=== PATIENT | male | born 1960 | race Two or more races ===

== ENCOUNTER 2022-12-30 08:15 | Emergency (ER) | payer OTHER ==
[2022-12-30 08:36] VITALS: BMI 32.3
[2022-12-30] MEDS ORDERED: SODIUM CHLORIDE 0.9% 500 ML INFUS.BAG IV ONE (08:41)
[2022-12-30] MEDS ORDERED: METOCLOPRAMIDE HCL INJECTION 10 MG/2 ML VIAL IVPUSH ONE (08:41)
[2022-12-30] MEDS ORDERED: METOCLOPRAMIDE HCL INJECTION 10 MG/2 ML VIAL ONE (09:13)
[2022-12-30 09:33] LABS: BASO % 0.9 % (0-2.0); EOS % 0.2 % (0-4.5); HEMATOCRIT 50.7 % (35.4-49); HEMOGLOBIN 17.4 GM/dL (11.7-16.9); LYMPH % 18.1 % (8-40); MCH 31.1 pg (25.7-33.7); MCHC 34.3 g/dl (32.0-35.9); MEAN CELL VOLUME 90.7 fl (80-96); MEAN PLT VOLUME 10.9 fl (7.5-11.1); MONO % 4.2 % (3.8-10.2); NEUT % 76.6 % (42.8-82.8); PLATELET COUNT 237 10^3/uL (134-434); RBC 5.59 M/mm3 (4.00-5.60); RDW 13.6 % (11.9-15.9); WHITE BLOOD COUNT 12.6 K/mm3 (4.0-10.0)
[2022-12-30 09:43] LABS: INR 1.11 (0.83-1.09); PROTHROMBIN TIME (PATIENT) 12.9 SEC (9.7-13.0)
[2022-12-30 09:59] LABS: POTASSIUM 4.3 mmol/L (3.5-5.1)
[2022-12-30 10:01] LABS: CALCIUM 9.6 mg/dL (8.5-10.1)
[2022-12-30 10:02] LABS: BLOOD UREA NITROGEN 14.4 mg/dL (7-18); MAGNESIUM 2.2 mg/dL (1.8-2.4)
[2022-12-30 10:05] LABS: CREATININE 0.8 mg/dL (0.55-1.3)
[2022-12-30 10:06] LABS: BILIRUBIN,TOTAL 0.9 mg/dL (0.2-1); TOT PROT 8.2 g/dl (6.4-8.2)
[2022-12-30] MEDS ORDERED: KETOROLAC TROMETHAMINE 15 MG/ML VIAL IVPUSH ONE (10:13)
[2022-12-30] MEDS ORDERED: KETOROLAC TROMETHAMINE 15 MG/ML VIAL ONE (10:20)
[2022-12-30 11:05] LABS: INR 1.17 (0.83-1.09); PROTHROMBIN TIME (PATIENT) 13.5 SEC (9.7-13.0)
[2022-12-30 11:07] LABS: ACTIVATED PTT 35.4 SECONDS (25.2-36.5)
[2022-12-30 11:11] LABS: ACTIVATED PTT 46.1 SECONDS (25.2-36.5)
[2022-12-30 11:51] VITALS: BP 144/75; RESP 16; TEMP 97.6
[2023-01-03 21:34] VITALS: PULSE 73
== END 2022-12-30 11:53 | disposition home or self-care (01) ==
LOC: JER 08:15
PROC: 3E033NZ Introduction of Analgesics, Hypnotics, Sedatives into Peripheral Vein, Percutaneous Approach (ICD-10-PCS; principal; 2022-12-30)
PROC: 3E033GC Introduction of Other Therapeutic Substance into Peripheral Vein, Percutaneous Approach (ICD-10-PCS; 2022-12-30)
DX: R51.9 Headache, unspecified (principal); R42 Dizziness and giddiness; R25.1 Tremor, unspecified; G44.40 Drug-induced headache, not elsewhere classified, not intractable
CPT/HCPCS: 36415; 70450-TC; 71045-TC-FY; 80053; 82140; 82550; 82962; 83690; 83735; 84443; 84484; 85025; 85610; 85730; 86850; 86900; 86901; 93005; 93010; 99285-25

== ENCOUNTER 2024-06-26 11:35 | Emergency (ER) | payer OTHER ==
[2024-06-26 12:22] VITALS: BP 153/99; PULSE 77; RESP 18; TEMP 98.5; BMI 32.3
[2024-06-26] MEDS ORDERED: ACETAMINOPHEN INJECTION 100 ML ONE (13:35)
[2024-06-26] MEDS: SODIUM CHLORIDE 0.9% 500 ML INFUS.BAG IV ONE (14:06)
[2024-06-26] MEDS: ACETAMINOPHEN 1000 MG/100 ML BAG IVPB ONE (14:07)
[2024-06-26 14:30] LABS: BASO % 0.6 % (0-2.0); HEMATOCRIT 40.6 % (35.4-49); HEMOGLOBIN 13.8 GM/dL (11.7-16.9); LYMPH % 37.3 % (8-40); MCH 30.2 pg (25.7-33.7); MEAN CELL VOLUME 88.7 fl (80-96); MEAN PLT VOLUME 10.6 fl (7.5-11.1); MONO % 8.5 % (3.8-10.2); NEUT % 52.6 % (42.8-82.8); PH,URINE 5.5 (5.0-8.0); PLATELET COUNT 176 10^3/uL (134-434); RBC 4.57 M/mm3 (4.00-5.60); RDW 13.9 % (11.9-15.9); URINE APPEARANCE CLEAR; URINE BILIRUBIN NEGATIVE (NEGATIVE); URINE COLOR YELLOW; URINE GLUCOSE (UA) 3+ (NEGATIVE); URINE KETONE NEGATIVE (NEGATIVE); URINE LEUK ESTERASE NEGATIVE (NEGATIVE); URINE NITRITE NEGATIVE (NEGATIVE); URINE PROTEIN NEGATIVE (NEGATIVE); URINE UROBILINOGEN 0.2 mg/dL (0.2-1.0); WHITE BLOOD COUNT 8.7 K/mm3 (4.0-10.0)
[2024-06-26 14:35] LABS: INR 0.98 (0.83-1.09); PROTHROMBIN TIME (PATIENT) 11.3 SEC (9.7-13.0)
[2024-06-26 14:38] LABS: ACTIVATED PTT 30.2 SECONDS (25.2-36.5)
[2024-06-26 15:17] LABS: ALBUMIN 3.2 g/dl (3.4-5.0); BILIRUBIN,TOTAL 0.4 mg/dL (0.2-1); CALCIUM 8.6 mg/dL (8.5-10.1); CREATININE 0.7 mg/dL (0.55-1.3); POTASSIUM 4.1 mmol/L (3.5-5.1); TOT PROT 6.3 g/dl (6.4-8.2)
[2024-06-26 15:24] LABS: HIV INTERPRETATION NEGATIVE (NEGATIVE)
[2024-06-26 16:34] LABS: BLOOD UREA NITROGEN 15.6 mg/dL (7-18)
== END 2024-06-26 17:28 | disposition home or self-care (01) ==
LOC: JER 11:35
PROC: 3E033NZ Introduction of Analgesics, Hypnotics, Sedatives into Peripheral Vein, Percutaneous Approach (ICD-10-PCS; principal; 2024-06-26)
DX: M54.42 Lumbago with sciatica, left side (principal)
CPT/HCPCS: 36415; 71275-TC; 74174-TC; 80053; 81003; 85025; 85610; 85730; 86803; 87086; 87389; 87522; 96374; 99284-25; J0131; Q9967

== ENCOUNTER 2024-09-04 17:05 | Observation (INO) | payer OTHER ==
[2024-09-04 18:14] LABS: BASO % 0.5 % (0-2.0); EOS % 0.5 % (0-4.5); HEMATOCRIT 50.4 % (35.4-49); HEMOGLOBIN 16.9 GM/dL (11.7-16.9); LYMPH % 21.7 % (8-40); MCH 30.1 pg (25.7-33.7); MCHC 33.5 g/dl (32.0-35.9); MEAN CELL VOLUME 89.7 fl (80-96); MEAN PLT VOLUME 10.5 fl (7.5-11.1); MONO % 6.8 % (3.8-10.2); NEUT % 70.5 % (42.8-82.8); PLATELET COUNT 208 10^3/uL (134-434); RBC 5.62 M/mm3 (4.00-5.60); WHITE BLOOD COUNT 13.1 K/mm3 (4.0-10.0)
[2024-09-04 18:33] LABS: POTASSIUM 4.9 mmol/L (3.5-5.1)
[2024-09-04 18:36] LABS: ALBUMIN 3.6 g/dl (3.4-5.0); BLOOD UREA NITROGEN 39.3 mg/dL (7-18); CALCIUM 9.2 mg/dL (8.5-10.1)
[2024-09-04 18:39] LABS: CREATININE 1.4 mg/dL (0.55-1.3)
[2024-09-04 18:41] LABS: BILIRUBIN,TOTAL 1.4 mg/dL (0.2-1)
[2024-09-04 18:42] LABS: TOT PROT 7.5 g/dl (6.4-8.2)
[2024-09-04] MEDS: SODIUM CHLORIDE 0.9% 500 ML INFUS.BAG IV ONE (19:30)
[2024-09-04] MEDS ORDERED: HALOPERIDOL LACTATE 5 MG/ML ONE (20:39)
[2024-09-04] MEDS: HALOPERIDOL LACTATE 5 MG/ML IM ONE (20:44)
[2024-09-04] MEDS ORDERED: MIDAZOLAM HCL 2 MG/2 ML SINGLE DOSE VIAL ONE ×2 (22:02→22:52)
[2024-09-04] MEDS: MIDAZOLAM HCL 2 MG/2 ML SINGLE DOSE VIAL IVPUSH ONE (22:58)
[2024-09-04] MEDS: MIDAZOLAM HCL 2 MG/2 ML SINGLE DOSE VIAL IM ONE (23:30)
[2024-09-05 02:25] LABS: PH,URINE 5.5 (5.0-8.0); URINE APPEARANCE CLEAR; URINE BILIRUBIN NEGATIVE (NEGATIVE); URINE COLOR YELLOW; URINE GLUCOSE (UA) NEGATIVE (NEGATIVE); URINE KETONE TRACE (NEGATIVE); URINE LEUK ESTERASE NEGATIVE (NEGATIVE); URINE NITRITE NEGATIVE (NEGATIVE); URINE PROTEIN NEGATIVE (NEGATIVE); URINE UROBILINOGEN 0.2 mg/dL (0.2-1.0)
[2024-09-05 02:31] LABS: URINE BARBITURATES NEGATIVE (NEGATIVE)
[2024-09-05 02:33] LABS: METHADONE, UR NEGATIVE (NEGATIVE); OPIATES, URI NEGATIVE (NEGATIVE); PHENCYCLIDINE,URINE NEGATIVE (NEGATIVE)
[2024-09-05 02:55] LABS: COCAINE, UR NEGATIVE (NEGATIVE); URINE AMPHETAMINES POSITIVE (NEGATIVE); URINE BENZODIAZEPINES POSITIVE (NEGATIVE)
[2024-09-05] MEDS ORDERED: MIDAZOLAM HCL 2 MG/2 ML SINGLE DOSE VIAL ONE ×3 (03:02→04:36)
[2024-09-05] MEDS: LACTATED RINGERS SOLUTION 1,000 ML/1,000 ML INFUS.BAG IV SCH (03:42)
[2024-09-05] MEDS ORDERED: LORazepam 2 MG/ML SDV VIAL IVPUSH PRN (04:14)
[2024-09-05] MEDS ORDERED: MIDAZOLAM HCL 5 MG/1 ML Single Dose Vial IM ONE (04:22)
[2024-09-05] MEDS: MIDAZOLAM HCL 5 MG/1 ML Single Dose Vial IM ONE (05:11)
[2024-09-05] MEDS ORDERED: HALOPERIDOL LACTATE 5 MG/ML ONE (05:29)
[2024-09-05] MEDS: HALOPERIDOL LACTATE 5 MG/ML IM ONE (05:34)
[2024-09-05] MEDS ORDERED: INSULIN ASPART SLIDING SCALE (NOVOLOG) 1 VIAL SQ SCH ×2 (07:00→11:00)
[2024-09-05 08:03] LABS: BASO % 0.4 % (0-2.0); EOS % 0.4 % (0-4.5); HEMATOCRIT 47.9 % (35.4-49); HEMOGLOBIN 16.4 GM/dL (11.7-16.9); LYMPH % 31.7 % (8-40); MCH 30.7 pg (25.7-33.7); MCHC 34.3 g/dl (32.0-35.9); MEAN CELL VOLUME 89.5 fl (80-96); MONO % 6.3 % (3.8-10.2); NEUT % 61.2 % (42.8-82.8); PLATELET COUNT 180 10^3/uL (134-434); RBC 5.35 M/mm3 (4.00-5.60); RDW 13.7 % (11.9-15.9); WHITE BLOOD COUNT 9.8 K/mm3 (4.0-10.0)
[2024-09-05 08:21] LABS: POTASSIUM 3.6 mmol/L (3.5-5.1)
[2024-09-05 08:32] LABS: BILIRUBIN,DIRECT 0.2 mg/dL (0.0-0.2)
[2024-09-05 08:34] LABS: CALCIUM 8.5 mg/dL (8.5-10.1)
[2024-09-05 08:35] LABS: BLOOD UREA NITROGEN 32.1 mg/dL (7-18)
[2024-09-05 08:37] LABS: ALBUMIN 3.4 g/dl (3.4-5.0)
[2024-09-05 08:39] LABS: BILIRUBIN,TOTAL 1.1 mg/dL (0.2-1)
[2024-09-05 09:15] VITALS: BP 113/73; PULSE 80; RESP 18; TEMP 97.3; BMI 34.4
[2024-09-05] MEDS ORDERED: ENOXAPARIN NA (PORCINE) 40 MG/0.4 ML DISP.SYRIN SQ SCH (10:00)
== END 2024-09-05 10:30 | disposition left against medical advice (07) ==
LOC: JER 17:05 → JERBED 22:59 → J5S 09-05 08:06
PROVIDERS: ADMIT Internal Medicine; ATTEND Internal Medicine
PROC: 3E023GC Introduction of Other Therapeutic Substance into Muscle, Percutaneous Approach (ICD-10-PCS; principal; 2024-09-04)
PROC: 3E0337Z Introduction of Electrolytic and Water Balance Substance into Peripheral Vein, Percutaneous Approach (ICD-10-PCS; 2024-09-04)
PROC: 3E033NZ Introduction of Analgesics, Hypnotics, Sedatives into Peripheral Vein, Percutaneous Approach (ICD-10-PCS; 2024-09-04)
DX: R41.82 Altered mental status, unspecified (principal); F11.90 Opioid use, unspecified, uncomplicated; G20.A1 Parkinson's disease without dyskinesia, without mention of fluctuations; B19.20 Unspecified viral hepatitis C without hepatic coma; E11.9 Type 2 diabetes mellitus without complications
CPT/HCPCS: 36415; 70450-TC; 71045-TC-FY; 80053; 80307; 81003; 82248; 83036; 84484; 85025; 87522; 93005; 93010; 96361; 96372; 96374; 99285-25; G0378

== ENCOUNTER 2024-12-01 12:33 | Emergency (ER) | payer OTHER ==
[2024-12-01 13:03] VITALS: BMI 35.5
[2024-12-01 14:06] LABS: ABSOLUTE IMMATURE GRANULOCYTES 0.08 x10^3/uL (0.0-0.031); BASOPHILS # 0.04 x10^3/uL (0.01-0.08); EOSINOPHIL % 0.2 % (0.8-7.0); EOSINOPHILS # 0.02 x10^3/uL (0.04-0.54); HEMATOCRIT 45.5 % (40.1-51.0); HEMOGLOBIN 15.3 g/dL (13.7-17.5); MCHC 33.6 g/dl (32.3-36.5); MEAN CELL VOLUME 88.2 fl (79.0-92.2); MEAN PLT VOLUME 12.4 fl (9.4-12.4); MONOCYTE # 0.85 x10^3/uL (0.30-0.82); MONOCYTE % 7.8 % (5.3-12.2); PLATELET COUNT 213 x10^3/uL (163-337); RDW 12.9 % (12.2-16.4)
[2024-12-01 14:07] LABS: VENOUS BASE EXCESS -5.8 mmol/L (-2-2); VENOUS O2 SATURATION 71.3 % (70-80); VENOUS PH 7.267 (7.310-7.410)
[2024-12-01 14:24] LABS: CHLORIDE 109 mmol/L (98-107); POTASSIUM 4.1 mmol/L (3.5-5.1); SODIUM 140 mmol/L (136-145)
[2024-12-01 14:26] LABS: ALBUMIN 3.5 g/dl (3.4-5.0); ANION GAP 8 mmol/L (4-13); CALCIUM 8.7 mg/dL (8.5-10.1); CO2 23 mmol/L (21-32)
[2024-12-01 14:29] LABS: SGOT/AST 17 U/L (15-37); SGPT/ALT 32 U/L (13-61)
[2024-12-01 14:30] LABS: CREATININE 1.3 mg/dL (0.55-1.3)
[2024-12-01 14:31] LABS: BILIRUBIN,TOTAL 0.7 mg/dL (0.2-1); TOT PROT 6.8 g/dl (6.4-8.2)
[2024-12-01 14:32] LABS: ALK PHOS 137 U/L (45-117)
[2024-12-01 14:35] LABS: GLUCOSE,RANDOM 421 mg/dL (74-106)
[2024-12-01] MEDS: SODIUM CHLORIDE 0.9% 500 ML INFUS.BAG IV ONE (15:07)
[2024-12-01 16:11] VITALS: RESP 18
[2024-12-01 17:01] VITALS: BP 128/81; PULSE 99; TEMP 98.7
== END 2024-12-01 17:20 | disposition home or self-care (01) ==
LOC: JER 12:33
DX: R41.82 Altered mental status, unspecified (principal); R94.31 Abnormal electrocardiogram [ECG] [EKG]; E11.65 Type 2 diabetes mellitus with hyperglycemia; Z79.84 Long term (current) use of oral hypoglycemic drugs
CPT/HCPCS: 36415; 70450-TC; 80053; 82010; 82803; 82962; 84484; 85025; 93005; 93010; 99285-25